=== PATIENT | female | born 1995 | race Caucasian/White ===

== ENCOUNTER 2017-05-11 00:35 | Emergency (ER) | payer OTHER ==
[~2017-05-11] VITALS: Ht 165.1 cm; Wt 72.8 kg
[2017-05-11 00:35] VITALS: BP 120/65
--- NOTE | 2017-05-11 01:26 | PHYS DOC ---
General Chief Complaint: SEXUALLY TRANSMITTED DISEASE Stated Complaint: MISSED PERIOD AND VAGINAL LEAKAGE Time Seen by MD: 01:21 Source: patient Exam Limitations: no limitations Problems: History of Present Illness Initial Comments Patient is a 22-year-old female who apparently reported initially to the nursing staff that she had missed a menstrual period and had some type of vaginal leakage/discharge. A urine test was reflexively ordered by the RN and reported to me as negative prior to my seeing the patient. As I enter the exam room the patient and her significant other who brought her to the emergency department were standing in the doorway. I advised her that her urine test was negative, to which she replied "I know what this is a UTI I have some cream at home for this and I'm ready to go." I asked the patient what type of symptoms she was having, she denied having any symptoms and reiterated her wish to leave. At this point I asked the patient if she just came for a test which she replied affirmatively. I asked her if she had any issues symptoms complaints that she would like for us to address and she stated she did not. She refuses any further evaluation including physical exam and appears to be very anxious to leave. I advised her that if she would like to leave I would go work on some discharge paperwork for her and try to get her on her way that way she would not have to sign out AMA. Timing/Duration: unsure Severity: mild Modifying Factors: improves with other Associated Symptoms: other Allergies: Coded Allergies: No Known Drug Allergies (Unverified , 05/11/17) Past Medical History Medical History: no pertinent history Surgical History: noncontributory Para: 0 : 0 LMP (Females 10-50): unknown Social History Smoker: non-smoker Alcohol: none Drugs: none Review of Systems All Other Systems: Reviewed and Negative (see history of present illness, denies any other complaints) Physical Exam General Appearance: WD/WN, no apparent distress (anxious, otherwise no physical exam performed) Orders, Labs, Meds Urine negative This 22-year-old female came apparently for urine test and upon finding out it was negative immediately wanted discharge. She is alert and oriented 3 and does not appear to be altered or intoxicated by any substance. She exhibits UCAR capacity and there does not appear to be any emergent condition. I discussed barrier protection with intercourse, if is intended I discussed vitamins and optimization of her health. Her questions were answered and she expressed agreement and understanding with the treatment plan. Departure Time of Disposition: 01:21 Disposition: 01 HOME, SELF-CARE Diagnosis: screening medical exam Condition: STABLE Patient Instructions: Natural Family Planning Additional Instructions: Please review the patient education materials given by ED staff. Initiate vitamins is planning for or barrier protection for contraception. Follow-up with your doctor and return to the emergency department as needed. KRISTYN KYLE DO May 11, 2017 01:26
== END 2017-05-11 01:32 | disposition home or self-care (01) ==
LOC: ER 00:35
DX: Z32.02 Encounter for pregnancy test, result negative (principal)
CPT/HCPCS: 81025; 99282

== ENCOUNTER 2017-05-27 12:44 | Emergency (ER) | payer OTHER ==
[~2017-05-27] VITALS: Ht 165.1 cm; Wt 72.8 kg
[2017-05-27 13:37] LABS: CLARITY,URINE HAZY; COLOR,URINE YELLOW
[2017-05-27 13:38] LABS: BILIRUBIN,URINE NEG (NEG); GLUCOSE,URINE NEG (NEG); NITRITE,URINE NEG (NEG); UROBILINOGEN,URINE 1 mg/dL (0.2 mg/dL)
[2017-05-27 13:39] LABS: BACTERIA,URINE 0 /HPF (0-FEW); SQUAMOUS EPITHELIAL CELL,UR MANY /LPF
[2017-05-27] MEDS ORDERED: METR500T PO ×2 (15:01→15:03)
[2017-05-27] MEDS ORDERED: FLUC150T PO (15:01)
--- NOTE | 2017-05-27 15:01 | PHYS DOC ---
Past History Past Medical History: No Pertinent History Past Surgical History: Tonsillectomy Smoking: Cigarettes Additional Smoking Information: pack a day Alcohol Use: None Drug Use: None Adult General Chief Complaint Chief Complaint: ABDOMINAL PAIN [facility] 22-year-old female patient complaining of left lower quadrant pain since yesterday as a constant aching pain with radiation to her pelvic area. Patient rated the pain getting force with movement and activity. Patient rated her pain as a mild to moderate pain. Patient complaining of mild vaginal discharge and vaginal bleeding since yesterday as less than her usual menstruation. Patient states she had her menstruation on May 01 as a light bleeding that last only 1 day. Patient denies new sexual partner or concern for STD. Patient is 1.Patient states during her previous pregnancies she had only positive blood test for and urine test was negative. Patient came with her friend who has a new and wishes the patient is present, too. Review of Systems Review of Systems Constitutional: Denies fever or chills [] Eyes: Denies change in visual acuity, redness, or eye pain [] HENT: Denies nasal congestion or sore throat [] Respiratory: Denies cough or shortness of breath [] Cardiovascular: No additional information not addressed in HPI [] GI: Denies nausea, vomiting, bloody stools or diarrhea, reports abdominal pain [ ] : Denies dysuria or hematuria [] Musculoskeletal: Denies back pain or joint pain [] Integument: Denies rash or skin lesions [] Neurologic: Denies headache, focal weakness or sensory changes [] Endocrine: Denies polyuria or polydipsia [] All other systems were reviewed and found to be within normal limits, except as documented in this note. Allergies Allergies Allergies Coded Allergies Type Severity Reaction Last Updated Verified No Known Drug Allergies 05/11/17 No Physical Exam Physical Exam Constitutional: Well developed, well nourished, no acute distress, non-toxic appearance. [] HENT: Normocephalic, atraumatic, bilateral external ears normal, oropharynx moist, no oral exudates, nose normal. [] Eyes: PERRLA, EOMI, conjunctiva normal, no discharge. [] Neck: Normal range of motion, no tenderness, supple, no stridor. [] Cardiovascular:Heart rate regular rhythm, no murmur [] Lungs & Thorax: Bilateral breath sounds clear to auscultation [] Abdomen: Bowel sounds normal, soft, no tenderness, no masses, no pulsatile masses. [] Skin: Warm, dry, no erythema, no rash. [] Back: No tenderness, no CVA tenderness. [] Extremities: No tenderness, no cyanosis, no clubbing, ROM intact, no edema. [] Neurologic: Alert and oriented X 3, normal motor function, normal sensory function, no focal deficits noted. [] Psychologic: Affect normal, judgement normal, mood normal. Patient do not want to have vaginal exam] Current Patient Data Vital Signs Vital Signs Date Time Temp Pulse Resp B/P (MAP) Pulse Ox O2 Delivery O2 Flow Rate FiO2 05/27/17 13:07 97.9 79 16 96 Room Air Lab Results Laboratory Tests Test 05/27/17 13:15 05/27/17 13:23 05/27/17 14:09 Urine Collection Type Unknown Urine Color Yellow Urine Clarity Hazy Urine pH 6.0 Urine Specific [place] 1.020 Urine Protein Neg (NEG-TRACE) Urine Glucose (UA) Neg mg/dL (NEG) Urine Ketones (Stick) Trace mg/dL (NEG) Urine Blood Mod (NEG) Urine Nitrite Neg (NEG) Urine Bilirubin Neg (NEG) Urine Urobilinogen Dipstick 1 mg/dL (0.2 mg/dL) Urine Leukocyte Esterase Small (NEG) Urine RBC 6-10 /HPF (0-2) Urine WBC 1-4 /HPF (0-4) Urine Squamous Epithelial Cells Many /LPF Urine Bacteria 0 /HPF (0-FEW) Urine Mucus Mod /LPF POC Urine HCG, Qualitative hcg negative (Negative) Maternal Serum HCG Beta Subunit < 1 mIU/mL (0-6) EKG EKG [] Radiology/Procedures Radiology/Procedures [] Course & Med Decision Making Course & Med Decision Making Pertinent Labs reviewed. (See chart for details) Evaluation of patient in ER showed 22-year-old female patient with complaining of left lower quadrant pain since yesterday and concern for and states she only had positive blood test in her previous pregnancies. Patient had unremarkable physical exam. Serum was negative. Patient complaining of vaginal discharge and did not want to have vaginal exam. She was not concern for STD. Patient was comfortable without any pain while she was in ER. Plan discharge patient home with diagnosis of vaginitis. [] Lori Disclaimer Dragon Disclaimer This electronic medical record was generated, in whole or in part, using a voice recognition dictation system. Departure Departure: Impression: Primary Impression: Abdominal pain Additional Impressions: Negative test Vaginal discharge Tobacco abuse Tobacco abuse counseling Disposition: HOME, SELF-CARE (At 1458) Condition: STABLE Referrals: BAKARI RUSSO (PCP) Patient Instructions: Smoking Cessation, Vaginitis, [id number] Additional Instructions: Take [id number] Tylenol or ibuprofen for pain Drink plenty of liquids Follow-up with your [facility] doctor in 3-5 days Scripts Metronidazole (FLAGYL) 500 Mg Tablet 2000 MG PO ONCE for 1 Day, TAB Prov: TRICIA BOYER MD 05/27/17 Fluconazole (DIFLUCAN) 150 Mg Tablet 1 TAB PO ONCE, #1 TAB 1 Refill Prov: TRICIA BOYER MD 05/27/17 Problem Qualifiers TRICIA BOYER MD May 27, 2017 15:01
[2017-05-27 15:05] VITALS: BP 122/71
== END 2017-05-27 15:18 | disposition home or self-care (01) ==
LOC: ER 12:44
DX: Z32.02 Encounter for pregnancy test, result negative (principal); R10.32 Left lower quadrant pain; N93.9 Abnormal uterine and vaginal bleeding, unspecified; F17.210 Nicotine dependence, cigarettes, uncomplicated; Z71.6 Tobacco abuse counseling
CPT/HCPCS: 36415; 81001; 81025; 84702; 87086; 99284

== ENCOUNTER 2020-07-29 12:42 | Emergency (ER) | payer SELFPAY ==
[~2020-07-29] VITALS: Ht 167.6 cm; Wt 63.0 kg
[~2020-07-29 12:42] MED LIST: FLUC150T PO; METR500T PO
[2020-07-29 12:45] VITALS: BP 133/63
--- NOTE | 2020-07-29 13:21 | PHYS DOC ---
Past History Past Medical History: No Pertinent History (DANE ZARATE Julianne HEALTH UNIT COORDINATOR) Past Surgical History: Tonsillectomy (TESSADANE Julianne DANIELS) Smoking: Cigarettes Alcohol Use: None Drug Use: None (DANE ZARATE Julianne DANIELS) Adult General Chief Complaint Chief Complaint: ABDOMINAL PAIN [facility] HPI Patient is a 25-year-old female patient 5 para 3 with 2 miscarriages presenting today concerned she is . Patient states she did a home test and had a faint positive line yesterday. Her last menstrual cycle was June 29, 2020. She is complaining of slight abdominal cramping. She is requesting a beta hcg (TESSADANE Julianne HEALTH UNIT COORDINATOR) Review of Systems Review of Systems Constitutional: Denies fever or chills [] Eyes: Denies change in visual acuity, redness, or eye pain [] HENT: Denies nasal congestion or sore throat [] Respiratory: Denies cough or shortness of breath [] Cardiovascular: No additional information not addressed in HPI [] GI: Concern for with abdominal cramping. Denies nausea, vomiting, bloody stools or diarrhea [] : Denies dysuria or hematuria [] Musculoskeletal: Denies back pain or joint pain [] Integument: Denies rash or skin lesions [] Neurologic: Denies headache, focal weakness or sensory changes [] All other systems were reviewed and found to be within normal limits, except as documented in this note. (DANE ZARATE Julianne HEALTH UNIT COORDINATOR) Allergies Allergies Allergies Coded Allergies Type Severity Reaction Last Updated Verified No Known Drug Allergies 05/11/17 No (DANE ZARATE JEREMIAH) Physical Exam Physical Exam Constitutional: Well developed, well nourished, no acute distress, non-toxic appearance. [] HENT: Normocephalic, atraumatic, bilateral external ears normal, oropharynx moist, no oral exudates, nose normal. [] Eyes: PERRLA, EOMI, conjunctiva normal, no discharge. [] Neck: Normal range of motion, no tenderness, supple, no stridor. [] Cardiovascular:Heart rate regular rhythm, no murmur [] Lungs & Thorax: Bilateral breath sounds clear to auscultation [] Abdomen: Bowel sounds normal, soft, no tenderness, no masses, no pulsatile masses. [] Skin: Warm, dry, no erythema, no rash. [] Back: No tenderness, no CVA tenderness. [] Extremities: No tenderness, no cyanosis, no clubbing, ROM intact, no edema. [] Neurologic: Alert and oriented X 3, normal motor function, normal sensory function, no focal deficits noted. [] Psychologic: Affect normal, judgement normal, mood normal. [] (DANE ZARATE APRN) EKG EKG [] (DANE ZARATE APRN) Radiology/Procedures Radiology/Procedures [] (DANE ZARATE APRN) Heart Score C/O Chest Pain: N/A Risk Factors: Risk Factors: DM, Current or recent (<one month) smoker, HTN, HLP, family hist ory of CAD, obesity. Risk Scores: Risk Factors: DM, Current or recent (<one month) smoker, HTN, HLP, family history of CAD, obesity. (DANE ZARATE APRN) Course & Med Decision Making Course & Med Decision Making Pertinent Labs and Imaging studies reviewed. (See chart for details) This is a 25-year-old male patient presented to the ED today concerned she is . Last menstrual cycle was June 29, 2020. She states she had a home made positive urine. She is requesting a beta hcg. Beta-hCG less than 1. Discharge home. (DANE ZARATE APRN) Dragon Disclaimer Dragon Disclaimer This electronic medical record was generated, in whole or in part, using a voice recognition dictation system. (DANE ZARATE APRN) Departure Departure: Impression: Primary Impression: Encounter for test, result negative Disposition: 01 DC HOME SELF CARE/HOMELESS Condition: STABLE Referrals: BAKARI RUSSO (PCP) follow up with your doctor in one week Patient Instructions: Abdominal Pain Additional Instructions: Your beta hcg<1 and urine test is negative. You are not currently please follow up with your doctor in 1 week Attending Signature Attending Signature I have reviewed the PA/INTERNATIONAL ACCOUNTANT's note and plan of care. I was available for consultation as needed during the patient's visit in the emergency department. I agree with the clinical impression, plan, and disposition. (DAVID MENCHACA DO) DANE ZARATE APRN Jul 29, 2020 13:21 DAVID MENCHACA DO Jul 30, 2020 00:50
[2020-07-29 14:40] LABS: BACTERIA,URINE MANY /HPF (0-FEW); BILIRUBIN,URINE NEG (NEG); CLARITY,URINE HAZY; COLOR,URINE YELLOW; GLUCOSE,URINE NEG (NEG); NITRITE,URINE POS (NEG); SQUAMOUS EPITHELIAL CELL,UR MOD /LPF
== END 2020-07-29 14:30 | disposition home or self-care (01) ==
LOC: ER 12:42
DX: Z32.02 Encounter for pregnancy test, result negative (principal); R10.9 Unspecified abdominal pain; F17.210 Nicotine dependence, cigarettes, uncomplicated
CPT/HCPCS: 36415; 81001; 81025; 84702; 87086; 99283